=== PATIENT | female | born 1960 | race Native Hawaiian/Other Pacific Islander ===

== ENCOUNTER 2016-09-21 12:09 | Emergency (ER) | payer OTHER ==
[~2016-09-21] VITALS: Ht 154.9 cm; Wt 48.1 kg
== END 2016-09-21 14:42 | disposition home or self-care (01) ==
LOC: ED 12:09
DX: M51.27 Other intervertebral disc displacement, lumbosacral region (principal); M54.9 Dorsalgia, unspecified; G89.29 Other chronic pain
CPT/HCPCS: 96372; 99283; J1885

== ENCOUNTER 2017-01-04 10:23 | Outpatient (CLI) | payer OTHER | END 2017-01-04 20:01 | disposition home or self-care (01) | LOC: MRI 10:23 | DX: M54.5 Low back pain (principal); M54.41 Lumbago with sciatica, right side ==

== ENCOUNTER 2018-06-29 08:58 | Emergency (ER) | payer OTHER ==
[~2018-06-29] VITALS: Ht 154.9 cm; Wt 48.5 kg
[2018-06-29] MEDS ORDERED: ASPIRIN325 M1 PO (09:37)
[2018-06-29] MEDS ORDERED: DILTIAZEM HCL240 M2 PO (09:37)
[2018-06-29] MEDS ORDERED: HYDR5TAB9 PO (09:58)
[2018-06-29] MEDS ORDERED: NITR0.4S2 SL (10:00)
[2018-06-29 10:48] VITALS: BP 114/68; TEMP 98.7
== END 2018-06-29 10:48 | disposition home or self-care (01) ==
LOC: ED 08:58
DX: L25.3 Unspecified contact dermatitis due to other chemical products (principal); Y93.89 Activity, other specified; Y92.89 Other specified places as the place of occurrence of the external cause
CPT/HCPCS: 96372; 99282; J2930; Q0177

== ENCOUNTER 2020-08-24 13:23 | Outpatient (CLI) | payer OTHER ==
[~2020-08-24 13:23] MED LIST: ASPIRIN325 M1 PO; DILTIAZEM HCL240 M2 PO; HYDR5TAB9 PO; NITR0.4S2 SL
== END 2020-08-24 22:45 | disposition home or self-care (01) ==
LOC: INF 13:23
PROVIDERS: ATTEND Internal Medicine
DX: Z23 Encounter for immunization (principal)
CPT/HCPCS: 96372

== ENCOUNTER 2020-09-15 10:34 | Outpatient (CLI) | payer OTHER | END 2020-09-15 19:37 | disposition home or self-care (01) | LOC: INF 10:34 | PROVIDERS: ATTEND Internal Medicine | DX: Z23 Encounter for immunization (principal) | CPT/HCPCS: 96372 ==

== ENCOUNTER 2021-04-22 13:07 | Emergency (ER) | payer OTHER ==
[~2021-04-22] VITALS: Ht 154.9 cm; Wt 48.5 kg
[2021-04-22 13:24] VITALS: BP 109/68; TEMP 98
== END 2021-04-22 15:15 | disposition home or self-care (01) ==
LOC: ED 13:07
DX: M25.551 Pain in right hip (principal); M16.11 Unilateral primary osteoarthritis, right hip
CPT/HCPCS: 96372; 99283; J1885; J2550

== ENCOUNTER 2021-12-17 20:06 | Emergency (ER) | payer OTHER ==
[~2021-12-17] VITALS: Ht 154.9 cm; Wt 49.9 kg
[2021-12-17 21:36] VITALS: BP 110/78; TEMP 98.2
== END 2021-12-17 21:36 | disposition home or self-care (01) ==
LOC: ED 20:06
DX: M54.59 Other low back pain (principal); G89.29 Other chronic pain; G62.89 Other specified polyneuropathies
CPT/HCPCS: 96372; 99283; J1885; J2930